=== PATIENT | female | born 1940 | race Caucasian/White ===

== ENCOUNTER 2023-12-17 07:11 | Emergency (ER) | payer BC ==
[2023-12-17 07:18] VITALS: BMI 24.4
[2023-12-17 08:50] LABS: BASO % 0.6 % (0-2.0); EOS % 1.2 % (0-4.5); HEMATOCRIT 22.2 % (32.4-45.2); LYMPH % 14.5 % (8-40); MCHC 29.7 g/dl (32.0-36.0); MONO % 8.5 % (3.8-10.2); NEUT % 75.2 % (42.8-82.8); PLATELET COUNT 585 10^3/uL (134-434); RBC 3.64 M/mm3 (3.60-5.2); WHITE BLOOD COUNT 8.7 K/mm3 (4.0-10.0)
[2023-12-17 08:58] LABS: MCH 18.1 pg (25.7-33.7)
[2023-12-17 08:59] LABS: HEMOGLOBIN 6.6 GM/dL (10.7-15.3); INR 1.27 (0.83-1.09); PROTHROMBIN TIME (PATIENT) 14.7 SEC (9.7-13.0)
[2023-12-17 09:14] LABS: POTASSIUM 3.9 mmol/L (3.5-5.1)
[2023-12-17 09:16] LABS: BLOOD UREA NITROGEN 19.9 mg/dL (7-18); CALCIUM 8.8 mg/dL (8.5-10.1)
[2023-12-17 09:17] LABS: ALBUMIN 2.6 g/dl (3.4-5.0)
[2023-12-17 09:19] LABS: CREATININE 0.8 mg/dL (0.55-1.3)
[2023-12-17 09:21] LABS: BILIRUBIN,TOTAL 0.4 mg/dL (0.2-1); TOT PROT 8.2 g/dl (6.4-8.2)
[2023-12-17 09:50] LABS: ANISOCYTOSIS 1+; MACROCYTOSIS 0; TARGET CELLS 1+
[2023-12-17 14:31] VITALS: BP 120/62; PULSE 83; RESP 17; TEMP 99.1
== END 2023-12-17 15:17 | disposition home or self-care (01) ==
LOC: JER 07:11
DX: D50.9 Iron deficiency anemia, unspecified (principal)
CPT/HCPCS: 36415; 36430; 71045-TC-FY; 80053; 82272; 82728; 83540; 83550; 85025; 85610; 86850; 86900; 86901; 86922; 93005; 93010; 99285-25; P9058